=== PATIENT | female | born 1995 | race Hispanic/Latino ===

== ENCOUNTER 2024-03-26 14:14 | Emergency (ER) | payer MEDICAID ==
[~2024-03-26] VITALS: Ht 160 cm; Wt 90.3 kg
--- NOTE | 2024-03-26 15:05 | ERN ---
General Chief Complaint: OB<20 weeks gest. Stated Complaint: 17 WKS PREG,SHARP PAIN ON UPPER ABD AREA,THROWING Time Seen by MD: 14:16 Source: patient History of Present Illness Initial Comments 28-year-old G three P 1 at 17 weeks by date comes in to be evaluated for abdominal pain. Per patient this pain began earlier today. Patient was exposed to same symptoms by family members. Per patient to family members presented with abdominal discomfort nausea and vomiting. Past Medical History Past Medical History: No Pertinent History Past Surgical History: Female( History) LMP: Dec 26, 2023 : 3 Para: 1 Aborts: 1 ROS Dictation CONSTITUTIONAL: No chills, no fever, no weakness, no diaphoresis, no malaise. HEAD/FACE: No signs of trauma. EENT: No eye pain, no blurred vision, no tearing, no double vision, no ear pain, no ear discharge, no nose pain, no nasal congestion, no throat pain, no throat swelling, no mouth pain. RESPIRATORY: No cough, no orthopnea, no SOB, no stridor, no wheezing. CARDIOVASCULAR: No chest pain, no edema, no palpitations, no syncope. GASTROINTESTINAL/ABDOMINAL: No abdominal pain, no constipation, no diarrhea, no nausea, no vomiting. GENITOURINARY: No abnormal discharge, no dysuria, no frequent urination, no hematuria. No complaints of pain in the genitals. MUSCULOSKELETAL: No back pain, no gout, no joint pain, no joint swelling, no muscle pain, no muscle stiffness, no neck pain. INTEGUMENTARY: No change in color, no change in hair/nails, no dryness, no lesion, no lumps, no rash. NEUROLOGICAL/PSYCH: No anxiety, not depressed, no emotional problem, no headache, no numbness, no pre-existing deficit, no history of seizures, no tremors, no weakness. HEMATOLOGIC/LYMPHATIC: Not anemic, no history of blood clots, no apparent bleeding, no bruising, glands not swollen. All Systems Negative, Except as Noted. Physical Exam Physical Exam Dictation VITAL SIGNS: Reviewed. GENERAL APPEARANCE: Alert, oriented x3, no acute distress, obese. HEAD AND FACE: Non-traumatic. EYES: PERRL, pink conjunctivas, eyelid no trauma, anterior chamber clear. EARS: Pinnas intact and no signs of trauma or erythema. Ear canals clear and no discharge. TMs no erythema. NOSE: No discharge, no bleeding. OROPHARYNX: Mouth normal, teeth no caries, tongue pink. Pharynx clear, no erythema. Tonsils no exudates, no abscesses noted. Mucous membrane moist. NECK: Supple, non-tender, no thyromegaly, no masses, no JVD, no bruits. BREAST: Deferred. CHEST: No tenderness, no crepitus, no paradoxical movement, no retractions. LUNGS: Clear, well-ventilated, symmetric, no rales, no wheezing, no rhonchi, no stridor, good breath sounds bilaterally. HEART: Regular rate, regular rhythm, no murmur, no gallops. VASCULAR: No peripheral edema. ABDOMEN: Soft, positive bowel sounds, nondistended, no guarding, nontender, no rebound, no masses no hepatomegaly, no splenomegaly, no Mcdaniel's sign, no hernias. RECTAL: Deferred. GENITAL: Deferred. NEUROLOGICAL: Normal speech, gross motor function intact, gross sensory function intact. MUSCULOSKELETAL: Neck nontender, full range of motion, back nontender, full range of motion. EXTREMITIES: Nontender, full range of motion. SKIN: Color pink, dry, no turgor, no rash, no lacerations, no abrasions, no contusions. LYMPHATICS: Deferred. Results Laboratory and Microbiology Lab and Micro Result Laboratory Tests Test 03/26/24 17:33 White Blood Count 9.0 K/uL (4.8-10.8) Red Blood Count 4.64 MIL/uL (4.00-5.50) Hemoglobin 14.3 g/dL (12.0-16.0) Hematocrit 41.3 % (36-48) Mean Corpuscular Volume 89.0 fL (79-99) Mean Corpuscular Hemoglobin 30.8 pg (27.0-33.0) Mean Corpuscular Hemoglobin Concent 34.6 g/dL (32.0-36.0) Red Cell Distribution Width 12.8 % (11.0-15.5) Platelet Count 231 K/uL (130-400) Mean Platelet Volume 9.5 fL (7.5-10.5) Immature Granulocyte % (Auto) 0.7 % (0-1) Neutrophils (%) (Auto) 90.9 % (40.0-77.0) H Lymphocytes (%) (Auto) 5.9 % (21.0-51.0) L Monocytes (%) (Auto) 2.3 % (3.0-13.0) L Eosinophils (%) (Auto) 0.0 % (0.0-8.0) Basophils (%) (Auto) 0.2 % (0.0-5.0) Neutrophils # (Auto) 8.1 K/uL (1.8-7.7) H Lymphocytes # (Auto) 0.5 K/uL (1.0-4.8) L Monocytes # (Auto) 0.2 K/uL (0.1-1.0) Eosinophils # (Auto) 0.00 K/uL (0.00-0.70) Basophils # (Auto) 0.02 K/uL (0.00-0.20) Absolute Immature Granulocyte (auto 0.06 K/uL (0-1) Nucleated Red Blood Cells 0.0 % (0.0-0.19) Sodium Level 136 mmol/L (136-145) Potassium Level 3.4 mmol/L (3.5-5.1) L Chloride Level 103 mmol/L (101-111) Carbon Dioxide Level 26 mmol/L (21-32) Blood Urea Nitrogen 8 mg/dL (7-18) Creatinine 0.6 mg/dL (0.5-1.0) Glomerular Filtration Rate Calc 125 mL/min (>90) Random Glucose 100 mg/dL (70-105) Total Calcium 8.9 mg/dL (8.5-10.1) Total Bilirubin 0.7 mg/dL (0.2-1.0) Aspartate Amino Transf (AST/SGOT) 24 U/L (10-37) Alanine Aminotransferase (ALT/SGPT) 22 U/L (12-78) Alkaline Phosphatase 59 U/L (50-136) Total Protein 7.4 g/dL (6.0-8.3) Albumin 3.3 g/dL (3.5-5.0) L Lipase 33 U/L (16-77) Serum Test, Qualitative POSITIVE (NEGATIVE) H Labs Reviewed?: Yes EKG/XRAY/US/CT/MRI Ultrasound Comment [address] [place] [address] IMAGING REPORT Signed PATIENT: ARIC ARAUJO MR#: [id number] : 1995 SEX: F AGE: 28 LOCATION: [facility] ORDER 1530 STATUS: REG ER REPORT#: [id number] SERVICE 1528 REASON: ruq pain ORDERING PHYSICIAN: RENETTA OLIVA MD PROCEDURE: ABDRUQLTD - US ABDOMINAL RUQ\LTD Exam Type: US ABDOMINAL RUQ\E\LTD Clinical Information: ruq pain Comparison: None Findings: The liver shows normal echogenicity and is otherwise unremarkable. The liver measures less than 16 cm in length. Doppler evaluation shows patent portal and hepatic veins. The gallbladder shows no significant abnormalities. Specifically, no calculi are seen. The gallbladder wall thickness is 2 mm. No bile duct dilatation is noted. The common bile duct measures 5 mm. The right kidney measures 10.6 x 3.9 cm. The right kidney is normal in size and echogenicity. No hydronephrosis or renal calculi are seen. There are no renal masses. The pancreas is suboptimally visualized. IMPRESSION: Normal right upper quadrant abdominal ultrasound. DICTATED BY: MARCIAL CUETO MD DATE: 03/26/241548 ELECTRONICALLY SIGNED BY: MARCIAL CUETO MD DATE: 03/26/241551 [address] [id number] IMAGING REPORT Signed PATIENT: ARIC ARAUJO MR#: [id number] : 1995 SEX: F AGE: 28 LOCATION: [facility] ORDER 1504 STATUS: [facility] ER REPORT#: [id number] SERVICE 1502 REASON: abd pain ORDERING PHYSICIAN: RENETTA OLIVA MD PROCEDURE: OB >14 - US OB >14 WEEKS US OB >14 WEEKS HISTORY: abd pain. FINDINGS: Single fetus in breech presentation. heart rate: 152 bpm. Amniotic fluid index: 9.9 cm- normal. Placenta: Fundal posterior and grade 0. No gross structural abnormality noted. brain with normal lateral ventricles, choroid plexus, cerebellum, and cisterna magna, stomach, kidneys and urinary bladder, spine, cord insertion, three-vessel cord, and a four-chamber view of the heart are all present and appear normal. BIOMETRIC DATA: Biparietal diameter: 2.99 cm, consistent with gestational age of 15 weeks 3 days. Head circumference: 11.1 cm, consistent with gestational age of 15 weeks 3 days. Abdominal circumference: 8.5 to cm, consistent with gestational age of 14 weeks 6 days. Femoral length: 1.74 cm, consistent with gestational age of 15 weeks 1 day. weight: 113 grams. IMPRESSION: Single intrauterine of 15 weeks 1 day. DICTATED BY: MARCIAL CUETO MD DATE: 03/26/24 154 ELECTRONICALLY SIGNED BY: MARCIAL CUETO MD DATE: 03/26/24 155 MDM MDM: Differential diagnosis: Gastritis, gastroenteritis, , Patient is a 28-year-old female coming in to be evaluated for abdominal discomfort and nauseousness and vomiting. Per patient many family members have the same symptoms. Laboratory workup negative for acute findings. Patient will be discharged with a diagnosis of viral gastroenteritis. ED Course Orders Procedure Category Date Status Time Cbc With Differential LAB 03/26/24 In Process 15:02 Comprehensive LAB 03/26/24 Complete Metabolic Panel 15:02 Lipase LAB 03/26/24 Complete 15:02 Urinalysis LAB 03/26/24 Logged W/Microscopic 15:02 Testing, LAB 03/26/24 Complete Serum Hcg 15:02 Us Ob >14 Weeks US 03/26/24 Resulted 15:02 0.9%Nacl 1000ml (Ns PHA 03/26/24 Complete 1000ml) 15:30 Us Abdominal Ruq\Ltd US 03/26/24 Resulted 15:28 Current Medications Medications (Trade) Dose Ordered Sig/Naila Route PRN Reason Start Time Stop Time Status Last Admin Dose Admin Sodium Chloride 1,000 ml @ 0 mls/hr ONCE ONCE IV 03/26/24 15:30 03/26/24 15:31 DC 03/26/24 17:51 Vital Signs Date Time Temp Pulse Resp B/P (MAP) Pulse Ox O2 Delivery O2 Flow Rate FiO2 03/26/24 17:41 98.2 92 18 99/61 100 Room Air* 0 21 03/26/24 14:36 98.4 92 20 104/65 99 0 DX & DISP Disposition: Discharge Departure Impression: Primary Impression: Viral gastroenteritis Additional Impression: 3 Condition: Stable Additional Instructions: FOLLOW-UP WITH PRIMARY CARE PROVIDER IN 1 TO 2 DAYS. TAKE MEDICATIONS DIRECTED HERE IN THE EMERGENCY ROOM. OKAY TO CONTINUE HOME MEDICATIONS UNLESS OTHERWISE DISCUSSED DURING YOUR VISIT IN THE EMERGENCY ROOM TODAY. RETURN TO YOUR NEAREST EMERGENCY ROOM IF SYMPTOMS WORSEN OR IF THERE IS NO IMPROVEMENT. CALL 911 IF YOU NEED IMMEDIATE ASSISTANCE. TAKE TYLENOL [id number] NEEDED AND IF NO CONTRAINDICATIONS ARE PRESENT. INCREASE ORAL HYDRATION. A WOUND CULTURE OR URINE CULTURE WAS ORDERED HERE IN THE EMERGENCY ROOM DEPARTMENT PLEASE FOLLOW-UP WITH PRIMARY CARE PROVIDER AND ADVISE THEM TO GET REPEAT PORTS FROM OUR FACILITY. IF YOU HAD ANY FRANCIS WRAP/SPLINTS THAT WERE APPLIED HERE, PLEASE DO NOT REMOVE THEM UNTIL YOU SEE YOUR PRIMARY CARE OR SPECIALTY. Referrals: Referrals: SELF,REFERRAL (PCP) GUILLE HOLLIDAY MD Time of Disposition: 18:11 RENETTA OLIVA MD Mar 26, 2024 15:05
--- NOTE | 2024-03-26 15:51 | HMCIMG ---
US OB >14 WEEKS HISTORY: abd pain. FINDINGS: Single fetus in breech presentation. heart rate: 152 bpm. Amniotic fluid index: 9.9 cm- normal. Placenta: Fundal posterior and grade 0. No gross structural abnormality noted. brain with normal lateral ventricles, choroid plexus, cerebellum, and cisterna magna, stomach, kidneys and urinary bladder, spine, cord insertion, three-vessel cord, and a four-chamber view of the heart are all present and appear normal. BIOMETRIC DATA: Biparietal diameter: 2.99 cm, consistent with gestational age of 15 weeks 3 days. Head circumference: 11.1 cm, consistent with gestational age of 15 weeks 3 days. Abdominal circumference: 8.5 to cm, consistent with gestational age of 14 weeks 6 days. Femoral length: 1.74 cm, consistent with gestational age of 15 weeks 1 day. weight: 113 grams. IMPRESSION: Single intrauterine of 15 weeks 1 day.
--- NOTE | 2024-03-26 15:52 | HMCIMG ---
Exam Type: US ABDOMINAL RUQ\E\LTD Clinical Information: ruq pain Comparison: None Findings: The liver shows normal echogenicity and is otherwise unremarkable. The liver measures less than 16 cm in length. Doppler evaluation shows patent portal and hepatic veins. The gallbladder shows no significant abnormalities. Specifically, no calculi are seen. The gallbladder wall thickness is 2 mm. No bile duct dilatation is noted. The common bile duct measures 5 mm. The right kidney measures 10.6 x 3.9 cm. The right kidney is normal in size and echogenicity. No hydronephrosis or renal calculi are seen. There are no renal masses. The pancreas is suboptimally visualized. IMPRESSION: Normal right upper quadrant abdominal ultrasound.
[2024-03-26 17:51] LABS: BASOPHILS # (AUTO) 0.02 K/uL (0.00-0.20); BASOPHILS % (AUTO) 0.2 % (0.0-5.0); HEMATOCRIT 41.3 % (36-48); IMMATURE GRANULOCYTE ABSOLUTE 0.06 K/uL (0-1); LYMPHOCYTES # (AUTO) 0.5 K/uL (1.0-4.8); LYMPHOCYTES % (AUTO) 5.9 % (21.0-51.0); MEAN CORPUSCULAR HEMOGLOBIN 30.8 pg (27.0-33.0); MEAN CORPUSCULAR HGB CONC 34.6 g/dL (32.0-36.0); MONOCYTES # (AUTO) 0.2 K/uL (0.1-1.0); MONOCYTES % (AUTO) 2.3 % (3.0-13.0); NEUTROPHILS # (AUTO) 8.1 K/uL (1.8-7.7); NEUTROPHILS % (AUTO) 90.9 % (40.0-77.0); PLATELET COUNT (AUTO) 231 K/uL (130-400); RED BLOOD CELL COUNT(AUTO) 4.64 MIL/uL (4.00-5.50); RED CELL DISTRIBUTION WIDTH 12.8 % (11.0-15.5)
[2024-03-26] MEDS: 0.9%NACL 1000ML 1,000 ML IV ONE (17:51)
[2024-03-26 17:59] LABS: CREATININE 0.6 mg/dL (0.5-1.0); POTASSIUM 3.4 mmol/L (3.5-5.1)
[2024-03-26 18:04] LABS: ALBUMIN 3.3 g/dL (3.5-5.0); BILIRUBIN,TOTAL 0.7 mg/dL (0.2-1.0); TOTAL PROTEIN, SERUM 7.4 g/dL (6.0-8.3)
[2024-03-26 18:21] VITALS: BP 116/68; PULSE 97; RESP 18; TEMP 98; O2SAT 100
== END 2024-03-26 18:29 | disposition home or self-care (01) ==
LOC: EDH 14:14
DX: O98.512 Other viral diseases complicating pregnancy, second trimester (principal); A08.4 Viral intestinal infection, unspecified; Z3A.17 17 weeks gestation of pregnancy; Z98.890 Other specified postprocedural states
CPT/HCPCS: 99284; 96360; 76705; 76805; 80053; 84703; 83690; 85025; 36415; J7030